=== PATIENT | female | born 1980 | race Caucasian/White ===

== ENCOUNTER 2025-10-30 16:57 | Emergency (ER) | payer OTHER, SELFPAY ==
[2025-10-30 17:39] VITALS: BP 144/94; PULSE 80; RESP 16; TEMP 36.8; O2SAT 99; BMI 36.7
[2025-10-30 17:45] LABS: Appearance Urine Clear (Clear)
[2025-10-30 17:57] LABS: Ur HCG Qualitative* Negative (Negative)
--- NOTE | 2025-10-30 19:12 | ED_ITS ---
HPI - Abdominal Pain General Time Seen by Provider: 19:12 Date Seen: 10/30/25 Chief Complaint: Abdominal Pain Stated Complaint: Possible rupture Cyst PCOS Time Seen by Provider: 10/30/25 19:10 Source: patient and RN notes reviewed Mode of arrival: ambulatory Limitations: no limitations History of Present Illness HPI narrative: This 45-year-old female is coming in with severe right lower quadrant abdominal pain. This has been recurrent with the onset of her menstrual cycles over the last year. Last night was intense and worse than what it has been, just started her menstrual cycle yesterday. She notes no fevers or chills, no change in urination. She has had normal bowel movements. She does have severe iron deficiency anemia presumably from menstrual associated blood loss anemia. She has a tetryl wringer operator, just saw them last week. Her ferritin is down to 6.2, she has an iron transfusion scheduled. She last had 1 in February. She does have polycystic ovarian syndrome, has ruptured ovarian cysts before. She has had 2 pregnancies, they were achieved with IVF. Her symptoms typically only last 24 hours at the onset of her menstrual cycle making it difficult for her to have this evaluated. No prior abdominal surgeries. Related Data Home Medications ?Medication ?Instructions ?Recorded ?Confirmed No Known Home Medications 10/30/2510/10 Allergies Allergy/AdvReac Type Severity Reaction Status Date / Time halazone Allergy Severe Verified 10/30/25 17:43 Review of Systems Status of ROS Reports: 6 or more systems reviewed and unremarkable except as noted in History and below PFSH PFSH Social History Smoking Status: Never smoker How often do you have a drink containing alcohol: monthly or less How many standard drinks containing alcohol do you have on a typical day: 1 or 2 AUDIT-C Alcohol total score: 1 Non-prescribed substance use: denies use Exam Const: Vital Signs, click to edit/add: Vital Signs - 24 hr 10/30/25 17:39 Temperature 98.3 F Pulse Rate [Pulse Oximeter] 80 Respiratory Rate 16 Blood Pressure [Ri ght Upper Arm] 144/94 H Pulse Oximetry 99 Oxygen Delivery Me thod Room Air This 45-year-old female is alert, interactive, no apparent distress. Very pleasant sitting up on the edge of the bed when I come in. Face atraumatic, sclera clear. Lungs are clear, good air entry, no wheezing or crackles, no tachypnea, no accessory muscle use. CV regular rate and rhythm, no murmur, normal S1-S2. Abdomen is soft, she has definite right lower quadrant tenderness but states everywhere feels a little tender right now. There is certainly no rebound or guarding. Body habitus does make examination of underlying significant organomegaly or masses difficult. She certainly does not have rebound or guarding however. Bowel sounds are present. Skin visualized without jaundice or rash. Documenting provider has reviewed patient's vital signs: yes Course Course ED Course: Have discussed pelvic imaging with patient, she would like to proceed with a pelvic ultrasound in did subsequently order this. Discussed doing a CBC but she did decline, stated she just had this drawn with a tetryl wringer operator. She does not seem like she is hemorrhaging at this time, no fever, no other symptoms to suggest infectious etiology. Reevaluation(s) Time of Reevaluation #1: 20:37 Reevaluation #1: The preliminary mixer lever operator report is that there is a 10.5 cm cyst on the left ovary but no torsion. This is reviewed with patient. The cyst really is abutting midline per the mixer lever operator. Discussed with patient that I am doubtful that this is appendicitis given the recurrence of these symptoms every month. Did offer CT imaging to completely evaluate and look for other possible etiologies but she is declining. We discussed signs and symptoms of torsion, she is aware what this means. Will send her with some tramadol from [facility] as she really did not want anything strong as oxycodone. These come and 15 tablet pill packs of 50 mg with instructions for no driving, prescribed it every 6 hours as needed. We fully reviewed ovarian torsion, she is aware to not do any excessive physical activity right now. It will be imperative that she fol low up with OB Gy[facility] for further management of her symptoms. They are advised that we only have the preliminary mixer lever operator report, they decline waiting. They understand that I will not be back in the ED to be able to call them until Thursday. We did discuss that they could do sign on to our patient portal system, they would eventually be able to see the radiology report through that as well I believe. They decline waiting for the official Vital Signs Vital signs: Initial Vital Signs Temperature 98.3 F 10/30/25 17:39 Temperature Source Temporal Artery Scan 10/30/25 17:39 Pulse Rate 80 10/30/25 17:39 Respiratory Rate 16 10/30/25 17:39 Blood Pressure 144/94 H 10/30/25 17:39 Blood Pressure Mean 110 H 10/30/25 17:39 Pulse Oximetry 99 10/30/25 17:39 Oxygen Delivery Method Room Air 10/30/25 17:39 Vital Signs Temperature 98.3 F 10/30/25 17:39 Pulse Rate 80 10/30/25 17:39 Respiratory Rate 16 10/30/25 17:39 Blood Pressure 144/94 H 10/30/25 17:39 Pulse Oximetry 99 10/30/25 17:39 Oxygen Delivery Method Room Air 10/30/25 17:39 Temperature 98.3 F 10/30/25 17:39 Pulse Rate 74 10/30/25 20:42 Respiratory Rate 18 10/30/25 20:42 Blood Pressure 150/90 H 10/30/25 20:42 Pulse Oximetry 98 10/30/25 20:42 Oxygen Delivery Method Room Air 10/30/25 20:42 MDM - Abdominal Pain Lab Data Labs: Lab Results 10/30/25 Range/Units 17:35 Urine Color Yellow (Yellow) Urine Appearance Clear (Clear) Urine pH 6.0 (5.0-8.5) Ur Specific Ava >= 1.030 (1.000-1.030) Urine Protein 2+ A (Negative) Urine Glucose (UA) Negative (Negative) Urine Ketones Negative (Negative) Urine Blood 3+ A (Negative) Urine Nitrite Negative (Negative) Urine Bilirubin Negative (Negative) Urine Urobilinogen 0.2 (0.2-1.0) Ur Leukocyte Esterase Trace A (Negative) Urine RBC 50-100 A (0-2) Urine WBC 5-10 A (0-5) Ur Squamous Epith Cells Few (None-Few) Amorphous Sediment Few A (None) Urine Bacteria None (None) Urine HCG, Qual Negative (Negative) Imaging Data US pelvis: Attestation: I have reviewed the pertinent imaging results. Radiologist's impression: FINDINGS: Uterus: 9.8 x 5.5 x 6.8 cm. Normal echotexture of the myometrium. Small intramural fibroid measuring 1.2 x 1 x 0.9 centimeters (FIGO 3). Endometrium: Transvaginal imaging was performed to better evaluate the endometrium. Endometrial thickness measures 7 mm. No sign of endometrial mass or fluid. Right ovary 4 x 2.1 x 3.2 centimeters. Large left ovarian cyst measuring 8.9 x 9.9 x 10.5 centimeters, with thin possible peripheral ovarian parenchyma demonstrating vascular flow. Normal arterial and venous blood flow is demonstrated in the right ovary. Limited evaluation of the left ovary due to minimal visible parenchyma, but with visible flow. Cul-de-sac: No significant free fluid. IMPRESSION: No acute findings to explain symptoms. Large left ovarian cyst measuring 8.9 x 9.9 x 10.5 centimeters. No cine clip provided to fully evaluate for solid component, but no solid component reported by pathology technician, likely an O-RADS 2 lesion. The size of this ovarian cyst increases risk for ovarian torsion, though no definite torsion is visualized on this exam. Consider nonemergent gynecologic consult for possible cystectomy. Dictated by Eulalia Hutson MD @ 10/30/2025 8:58:44 PM (Electronically Signed) Discharge Plan Discharge Clinical Impression: Cyst of left ovary Patient Disposition: Home, Self-Care Condition: Stable Instructions: Ovarian Cyst (ED) Additional Instructions: The preliminary report per the mixer lever operator is that there is a 10.5 cm cyst on the left ovary without torsion. I will contact you on Thursday if there is any other changes on the radiologist's report once it is back. Use Tylenol 1000 mg 3 times a day baseline for pain, can supplement with ibuprofen per bottle directions as needed. Have written for tramadol 50 mg every 6 hours as needed for more severe pain. You need to schedule a follow-up with OB Gy[facility] specialty to further evaluate your menstrual issues as well as this left ovarian cyst. If you are having significant bleeding causing severe iron deficiency anemia, that is also another reason to consult them. If you have further concerns in the interim, feel that your pain is increasing or you have symptoms of left ovarian torsion, need to be re-evaluated. Activity Level: Activity as Tolerated Prescriptions: No Action No Known Home Medications Follow Up/Referrals: Provider,Not a Local [Primary Care Provider, Family Practice] Stand Alone Forms: [employer] Info Instructions
--- NOTE | 2025-10-30 19:22 | CRLHL7_ITS ---
For Patients: As a result of the Century Cures Act, medical imaging exams and procedure reports are released immediately into your electronic medical record. You may view this report before your referring provider. If you have questions, please contact your health care provider. INDICATION: Recurrent right lower quadrant pain TECHNIQUE: Ultrasound pelvis transvaginal for better assessment or to better visualize the endometrium. Real-time sonographic images with spectral and color Doppler imaging of the ovaries were obtained. COMPARISON: None. FINDINGS: Uterus: 9.8 x 5.5 x 6.8 cm. Normal echotexture of the myometrium. Small intramural fibroid measuring 1.2 x 1 x 0.9 centimeters (FIGO 3). Endometrium: Transvaginal imaging was performed to better evaluate the endometrium. Endometrial thickness measures 7 mm. No sign of endometrial mass or fluid. Right ovary 4 x 2.1 x 3.2 centimeters. Large left ovarian cyst measuring 8.9 x 9.9 x 10.5 centimeters, with thin possible peripheral ovarian parenchyma demonstrating vascular flow. Normal arterial and venous blood flow is demonstrated in the right ovary. Limited evaluation of the left ovary due to minimal visible parenchyma, but with visible flow. Cul-de-sac: No significant free fluid. IMPRESSION: No acute findings to explain symptoms. Large left ovarian cyst measuring 8.9 x 9.9 x 10.5 centimeters. No cine clip provided to fully evaluate for solid component, but no solid component reported by news clerk, likely an O-RADS 2 lesion. The size of this ovarian cyst increases risk for ovarian torsion, though no definite torsion is visualized on this exam. Consider nonemergent gynecologic consult for possible cystectomy. Dictated by Eulalia Hutson MD @ 10/30/2025 8:58:44 PM (Electronically Signed)
--- OUTSIDE RECORDS SUMMARY | 2025-10-30 19:46 | XMS_ITS | Clinical Summary ---
Author Organization [facility] Address [address] [address] Care Team Providers Care T[employer]or [employer] Name Role Phone Unavailable Primary Care Provider Unavailabl e Allergies Active AllergyReactionsCriticalityNoted NdxfOiqdtiloKhqlyibzuhaJwxaMdc92/13/1999 BenzocaineOther (See Comments)09/12/2010 Anesthesia -helathane ARRYTHMIA FlkalbbxezcYbkcUap12/02/1274Sylagpank97/01/2017 Other reaction(s): *Unknown Medications MedicationSigDispense QuantityRefillsLast FilledStart DateEnd DateStatus SUMAtriptan (IMITREX) 25 MG tablet Indications:Migraine without aura and without status migrainosus, not intractableTake 1-2 tablets (25-50 mg) by mouth at onset of headache for migraine May repeat in 2 hours. Max 4tablets/24 hours. 9 tablet Active naproxen (NAPROSYN) 500 MG tablet Indications:Migraine without aura and without status migrainosus, not intractableTake 1 tablet (500 mg) by mouth daily as needed for headaches (Take with food and limit use to lessthan 15 days/month.) 15 tablet Active metoclopramide (REGLAN) 10 MG tablet Indications:Neurogenic syncopeTake 1 tablet (10 mg) by mouth 4 times daily (before meals and nightly) 10 tablet Active hydrOXYzine (VISTARIL) 25 MG capsule Indications:Anxiety with flyingTake 1-2 capsules (25-50 mg) by mouth 3 times daily as needed for anxiety 30 capsule Active Active Problems ProblemNoted DateDiagnosed DateS/P C-czudfhf5806/25/2012Cesarean delivery nunqyeycz38/16/2012CARDIOVASCULAR SCREENING; LDL GOAL LESS THAN 8970009/08/2010 Immunizations ImmunizationAdministration DatesNext GguAsxksq08/16/2012 Family History Medical HistoryRelationCommentsCancerFatherprostate cancerHeart DiseaseFather HypertensionFatherThyroid DiseaseFatherRemoval of non-cancerous tumor Cerebrovascular DiseaseMaternal GrandmotherCerebrovascular DiseaseMother OsteoporosisPaternal GrandmotherRelationStatusCommentsDaughterAliveFatherAlive Maternal GrandfatherDeceasedMaternal GrandmotherDeceasedMotherAlivePaternal GrandfatherDeceasedPaternal GrandmotherDeceasedSonAlive Social History Tobacco UseTypesPacks/DayYears UsedDateSmoking Tobacco: NeverSmokeless Tobacco: Never Tobacco Cessation:Counseling Given: Yes Alcohol UseStandard Drinks/WeekCommentsYes0 (1 standard drink = 0.6 oz pure alcohol)1 drink 1-2 per monthPHQ-2AnswerDate RecordedPHQ-2 Pbrqv346 Adolescent EducationAnswerDate RecordedGetting School Help NeededNot on file 3CommentsNoSex and Gender InformationValueDate RecordedSex Assigned at QnpncWlidzx70/12/2019 10:30 AM CDTLegal LlgThdvqi76/04/2012 2:58 AM CSTGender BadjogyvYckkpg09/15/2019 2:00 PM CSTSexual OrientationStraight 07/21/2019 10:30 AM CDT Last Filed Vital Signs Vital SignReadingTime TakenCommentsBlood Zfzhgjxx882/7809/29/2019 5:13 PM BRYOLOGIST Cpjbk903609/29/2019 5:13 PM VEMYspcvxpotkn34.9 ??C (98.4 ??F)09/29/2019 5:13 PM CSTRespiratory Snuf706411/29/2018 5:13 PM CSTOxygen Vsjwqskztf60%09/29/2019 5:13 PM CSTInhaled Oxygen Concentration--Drebws87.5 kg (215 lb)09/29/2019 5:13 PM BRYOLOGIST Qurogh761.6 cm (5' 4)07/19/2019 1:01 PM CDTBody Mass Index36.9007/19/2019 1:01 PM CDT Plan of Treatment Not on file Insurance * Guarantor: Ruby Mo TypeRelation to PatientDate of BirthPhone Billing AddressPersonal[address] [place] [address]
[2025-10-30 20:42] VITALS: BP 150/90; PULSE 74; RESP 18; O2SAT 98
== END 2025-10-30 20:51 | disposition home or self-care (01) ==
PROVIDERS: Emergency Provider Family Medicine
DX: N83.202 Unspecified ovarian cyst, left side (principal)
CPT/HCPCS: 76830; 81001; 81025; 87086; 93976; 99284